=== PATIENT | male | born 1985 | race Caucasian/White ===

== ENCOUNTER 2024-03-27 11:26 | Outpatient (CLI) | payer MEDICAID ==
[2024-03-27 18:00] LABS: CHOL/HDL RATIO 2.7 (<5.0); CHOLESTEROL 140 mg/dL; HDL CHOLESTEROL 51 mg/dL; LDL CHOLESTEROL,CALCULATED 79 mg/dL; LDL/HDL RATIO 1.5 (<3.6); TRIGLYCERIDES 52 mg/dL (48-352); VLDL CHOLESTEROL 10 mg/dL
== END 2024-03-27 11:27 | disposition home or self-care (01) ==
LOC: LAB.N 11:26
DX: Z13.220 Encounter for screening for lipoid disorders (principal)
CPT/HCPCS: 36415; 80061; 83721